=== PATIENT | male | born 1945 | race Caucasian/White ===

== ENCOUNTER → 2020-09-05 | Outpatient (CLI) | payer MEDICARE, OTHER ==
[~2020-09-05] MED LIST: MEDROL DOSEPAK 24 MG PO; ROBAXIN-750750 MG PO
== END ==
LOC: CT 08-23 10:30
DX: I71.4 Abdominal aortic aneurysm, without rupture (principal)
CPT/HCPCS: Q9967

== ENCOUNTER 2021-01-09 00:39 | Emergency (ER) | payer MEDICARE, OTHER ==
[2021-01-09 02:01] LABS: RED BLOOD COUNT 4.16 M/UL (4.20-5.50); WHITE BLOOD COUNT 12.5 K/UL (4.5-11.0)
[2021-01-09 02:23] LABS: BUN/CREATININE RATIO 18 (0-10)
[2021-01-09] MEDS ORDERED: HYDROCODON-ACE1 EAC4 PO (05:33)
== END 2021-01-09 03:43 | disposition home or self-care (01) ==
LOC: ER1 00:39
PROVIDERS: Physician Assistant Medical
DX: M25.511 Pain in right shoulder (principal); I10 Essential (primary) hypertension
CPT/HCPCS: 73201; 80053; 85025; 85652; 86140; 96374; 96375; 99284; J2270; J2405; Q9967